=== PATIENT | male | born 1940 | race Caucasian/White ===

== ENCOUNTER 2023-09-05 07:42 | Emergency (ER) | payer MEDICARE, OTHER, SELFPAY ==
[2023-09-05 07:51] VITALS: BP 166/87
--- NOTE | 2023-09-05 09:53 | ED.MUSCINJ ---
HPI-Injury
General
Chief Complaint: Musculo-Skeletal Complaint
Source: patient
Exam Limitations: none
Time Seen by Provider: 09/05/23 09:00
Travel History
Have you had any contact with someone who has COVID-19?: No
Do you have any symptoms of coronavirus? Fever > 100 degrees, chills, cough, shortness of breath, sore throat, loss of taste or smell, muscle aches, or headache?: No
History of Present Illness-Injury
Initial Injury comments:
83-year-old male presents complaining of left anterior chest wall pain starting 5 days ago. He slipped on his patio and landed on his chest on the railing on his deck. He heard a rattling in his chest this morning when he woke up and presented
here for evaluation. He notes pain when he coughs or moves. He denies any significant shortness of breath. No hemoptysis.
Past History
Past History
ED Past Medical History: IDDM, Valvular disease and Other (COVID-19, jun 2020)
ED Past Surgical History: Cardiac (Cath no stents)
Social History
Tobacco: Non-smoker
Alcohol: None
Drug: None
Personal:
Living: with family
Employment: Retired
Family History
Family History: Diabetes
Phy Exam
Physical Exam
Physical Exam:
General: Well appearing male, No acute respiratory distress
HEENT: NC/AT
Heart: RRR, no murmurs
Lungs; CTA bilaterally, no wheeze or rales
Abd; soft, no ecchymosis or swelling
MSK: tender to left anterior lateral chest wall without stepoff or deformity
EXT: no cyanosis or edema.
skin: No laceration.
Injury Course
Orders/Labs/Results
Orders:
Orders
09/05/23 07:58
CR Ribs-left 3 Vw W/pa Chest Urgent
Comment:
Reason For Exam: injury to L lower ant chest wall
MDM/Problems Addressed
Differential Diagnosis Includes:
Left chest wall pain after slip and fall. Consider contusion rib fracture versus pneumothorax No abdominal tenderness to suggest intra-abdominal injury
I personally visualized x-rays of the left ribs and chest which are negative for acute displaced fracture or pneumothorax. Patient does have chronic findings on his chest x-ray that are similar to prior images. Suspect underlying chest wall strain
versus contusion. Did explain to patient he still could have a an occult nondisplaced rib fracture but treatment is the same.
*Critical Care Note
Total Time (30-74mins, 75-104mins- exclusive of procedures): Not Applicable
ED Attending Note
-
Portions of this chart may have been created with voice recognition software.� Occasional wrong word or��sound alike� substitutions may have occurred due to the inherent limitations of voice recognition software.
Discharge Plan
Departure
Patient Disposition: Home (Routine Discharge)
Date of Disposition: 09/05/23
Time of Disposition: 10:35
Patient with high blood pressure during this ER visit?: No
Discharge Problem:
Chest wall injury
Instructions: Contusion (DC)
Prescriptions:
No Action
simvastatin 40 MG tablet
40 mg PO QPM
coenzyme Q10 100 MG capsule
200 mg PO DAILY
glimepiride 2 MG tablet
4 mg PO BID
apixaban [Eliquis] 5 MG tablet
5 mg PO BID Qty: 60 0RF
Rx Instructions:
RESUME TONIGHT
gabapentin 400 MG capsule
800 mg PO BID
insulin glargine [Lantus Solostar U-100 Insulin] 300 UNITS/3 ML insulin pen
50 units SC HS
metoprolol tartrate 25 MG tablet
25 mg PO BID Qty: 60 6RF
sennosides [senna] 1 TABLET tablet
1 tab PO PRN PRN (Reason: constipation)
polyethylene glycol 3350 17 GRAMS powder in packet
17 grams PO PRN PRN (Reason: constipation)
acetaminophen 325 MG tablet
650 mg PO Q4HPRN PRN (Reason: COPE, mild pain, or fever >101F) 0RF
aspirin 81 MG tablet,delayed release (DR/EC)
81 mg PO DAILY 0RF
Referrals:
Segun Mccormick MD [Family Provider] -
Activity Restrictions/Additional Instructions:
Use Tylenol or ibuprofen for pain. Ice to the sore spot. Avoid heavy lifting or twisting activities. Return if worse
[2023-09-05 10:40] VITALS: BP 167/86
== END 2023-09-05 10:40 | disposition home or self-care (01) ==
LOC: EMR 07:42
PROVIDERS: EMERGENCY PHYSICIAN Emergency Medicine; FAMILY PHYSICIAN Family Medicine
DX: S29.9XXA Unspecified injury of thorax, initial encounter (principal); W01.0XXA Fall on same level from slipping, tripping and stumbling without subsequent striking against object, initial encounter; E11.9 Type 2 diabetes mellitus without complications; Z83.3 Family history of diabetes mellitus; Z86.16 Personal history of COVID-19
CPT/HCPCS: 99283; 71101

== ENCOUNTER 2024-08-11 15:12 | Emergency (ER) | payer MEDICARE, OTHER, SELFPAY ==
[2024-08-11 15:17] VITALS: BP 156/80
[2024-08-11 15:37] LABS: % Basophils 1.2 % (0-2); % Eosinophils 2.8 % (0-6); % Immature Granulocytes 0.4 % (0-0.5); % Lymphocytes 19.4 % (20.5-51.1); % Monocytes 8.5 % (1.7-9.3); % Neutrophils 67.7 % (42.2-75.2); Absolute Basophils 0.1 10^3/uL (0-0.2); Absolute Eosinophils 0.2 10^3/uL (0-0.7); Absolute Lymphocytes 1.5 10^3/uL (1.2-3.4); Absolute Monocytes 0.7 10^3/uL (0.1-0.6); Absolute Neutrophils 5.2 10^3/uL (1.4-6.5); Hematocrit 38.9 % (39.0-52.0); Hemoglobin 13.6 g/dL (13.0-18.0); Mean Corpuscular Hgb 30.7 pg (27.0-31.0); Mean Corpuscular Volume 87.8 fL (80.0-94.0); Mean Platelet Volume 10.7 fL (7.4-10.4); Nucleated Red Blood Cells % 0 % (-); Platelet Count 173 10^3/uL (130-400); Red Blood Cell Count 4.43 10^6/uL (4.70-6.10); Red Cell Dist. Width 12.2 % (11.5-14.5); White Blood Cell Count 7.7 10^3/uL (4.8-10.8)
[2024-08-11 15:53] LABS: ALT (SGPT) 23 U/L (0-50); AST (SGOT) 28 U/L (17-59); Albumin 4.3 g/dl (3.5-5.0); Alkaline Phosphatase 104 U/L (38-126); Blood Urea Nitrogen 20 mg/dl (9-20); Carbon Dioxide 25 mmol/L (22-30); Chloride 105 mmol/L (98-107); Glucose 102 mg/dl (70-99); Lipase 167 U/L (23-300); Potassium 4.3 mmol/L (3.5-5.1); Sodium 139 mmol/L (135-145); Total Bilirubin 0.4 mg/dl (0.2-1.3); Total Protein 6.6 g/dl (6.3-8.2); eGFR > 60.00
[2024-08-11 15:54] LABS: Lactic Acid 0.6 mmol/L (0.7-2.0)
[2024-08-11 17:32] VITALS: BP 149/84
--- NOTE | 2024-08-11 18:35 | ED.GENMED ---
History of Present Illness
General
Chief Complaint: Abdominal Pain
Source: patient
Exam Limitations: none
Time Seen by Provider: 08/11/24 18:30
Nursing documentation reviewed up to this point in time: agreed with
History of Present Illness
History of Present Illness:
84-year-old male with history of aortic stenosis, A-fib on Eliquis, DVT, HTN, HLD, IDDM, prosthetic right eye, presents today with right lower quadrant pain. States he awakened at 4 AM with RLQ pain that lasted about 30 minutes then resolved. He
went to work at [employer] later in the morning and about 12 noon the pain returned. He saw his PCP Dr. Mccormick at 1:30 PM who suggested he come here for evaluation.
Patient states he has no pain right now. He has been moving his bowels normally, denies nausea vomiting. Denies fever or chills. Denies chest pain or trouble breathing.
Patient states 'the only reason I am here is that when I was first I had a neighbor who is 84 years old that had pain right here (points to his right lower abdomen) and he from it.'
Past History
Past History
ED Past Medical History: IDDM, Valvular disease and Other (COVID-jun 2020)
ED Past Surgical History: Cardiac (Cath no stents)
Social History
Tobacco: Non-smoker
Alcohol: None
Drug: None
Personal:
Living: with family
Employment: Retired
Family History
Family History: Diabetes
Review of Systems
Review of Systems
Allergies reviewed?: Yes
All Other Systems: ROS reviewed and negative except as documented in HPI and ROS
Constitutional: Denies fever or fatigue
Respiratory: Denies trouble breathing
Cardiac: Denies chest pain
ABD/GI: Reports abdominal pain; Denies nausea, vomiting, diarrhea, constipated, bloody stools, black stools or anorexia
: Reports no symptoms
Musculoskeletal: Reports no symptoms
Skin: Reports no symptoms
Neurological: Reports no symptoms
Phy Exam
Physical Exam
Physical Exam:
GENERAL: No acute distress. A&Ox3.
CONSTITUTIONAL: Afebrile.
EYES: clear, conjunctivae normal
ENMT: moist mucus membranes, Pharynx nl
RESPIRATORY: Regular respirations, nonlabored, lungs clear.
CARDIOVASCULAR: Regular rate and rhythm, no murmurs, no rubs.
GI: Soft, nontender, normal BS
MUSCULOSKELETAL: Moves with ease. Well perfused.
SKIN: Warm, dry, pink
PSYCH: Normal mood and affect. Well kept, interactive and appropriate
NEUROLOGIC: Awake, alert and oriented. No focal neurological deficits
Course
Orders/Labs/Results
Orders:
Orders
08/11/24 15:26
Complete Blood Count/With Diff Urgent
Comprehensive Metabolic Panel Urgent
Lactic Acid Urgent
Lipase Urgent
08/11/24 18:44
CT Abd/Pel (IV only)-DH only Urgent
Comment:
Reason For Exam: RLQ pain
Abnormal Lab Results
08/11/24
15:26
RBC 4.43 L 10^6/uL
(4.70-6.10)
Hct 38.9 L %
(39.0-52.0)
MPV 10.7 H fL
(7.4-10.4)
Absolute Monos (auto) 0.7 H 10^3/uL
(0.1-0.6)
Lymphocytes % 19.4 L %
(20.5-51.1)
Glucose 102 H mg/dl
(70-99)
Lactic Acid 0.6 L mmol/L
(0.7-2.0)
08/11/24 15:26
08/11/24 15:26
Vital Signs
Initial and Last Documented VS:
Initial Vital Signs
Temp Pulse Resp BP Pulse Ox
98.2 F 77 20 156/80 98
08/11/24 15:17 08/11/24 15:17 08/11/24 15:17 08/11/24 15:17 08/11/24 15:17
Last Documented Vital Signs
Temp Pulse Resp BP Pulse Ox
98.2 F 85 16 141/73 96
08/11/24 15:17 08/11/24 17:32 08/11/24 17:32 08/11/24 19:14 08/11/24 17:32
MDM/Problems Addressed
MDM/Problems Addressed:
84-year-old male with history of aortic stenosis, A-fib on Eliquis, DVT, HTN, HLD, IDDM, COPD, prosthetic R eye, presents today with right lower quadrant pain. States he awakened at 4 AM with RLQ pain that lasted about 30 minutes then resolved. He
went to work at [employer] later in the morning and about 12 noon the pain returned. He saw his PCP Dr. Mccormick at 1:30 PM who suggested he come here for evaluation.
Patient states he has no pain right now. He has been moving his bowels normally, denies nausea vomiting. Denies fever or chills. Denies chest pain or trouble breathing.
Patient states 'the only reason I am here is that when I was first I had a neighbor who is 84 years old that had pain right here (points to his right lower abdomen) and he from it.'
Afebrile, NAD
Abdomen benign
CBC with no clinically significant abnormality
CMP normal
8:45 PM: Abdominal CAT scan with IV contrast report reviewed: No acute finding.
Pt is stable for discharge, OOB, dressed, pacing, wants to go home.
*Critical Care Note
Total Time (30-74mins, 75-104mins- exclusive of procedures): Not Applicable
ED Attending Note
-
Portions of this chart may have been created with voice recognition software.� Occasional wrong word or��sound alike� substitutions may have occurred due to the inherent limitations of voice recognition software.
Discharge Plan
Departure
Patient Disposition: Home (Routine Discharge)
Date of Disposition: 08/11/24
Time of Disposition: 20:45
Patient with high blood pressure during this ER visit?: No
Condition: Good
Discharge Problem:
Abdominal pain
Instructions: Abdominal Pain
Prescriptions:
No Action
simvastatin 40 MG tablet
40 mg PO QPM
coenzyme Q10 100 MG capsule
200 mg PO DAILY
glimepiride 2 MG tablet
4 mg PO BID
apixaban [Eliquis] 5 MG tablet
5 mg PO BID Qty: 60 0RF
Rx Instructions:
RESUME TONIGHT
gabapentin 400 MG capsule
800 mg PO BID
insulin glargine [Lantus Solostar U-100 Insulin] 300 UNITS/3 ML insulin pen
50 units SC HS
metoprolol tartrate 25 MG tablet
25 mg PO BID Qty: 60 6RF
sennosides [senna] 1 TABLET tablet
1 tab PO PRN PRN (Reason: constipation)
polyethylene glycol 3350 17 GRAMS powder in packet
17 grams PO PRN PRN (Reason: constipation)
acetaminophen 325 MG tablet
650 mg PO Q4HPRN PRN (Reason: COPE, mild pain, or fever >101F) 0RF
aspirin 81 MG tablet,delayed release (DR/EC)
81 mg PO DAILY 0RF
Referrals:
NONE,* [Family Provider] -
Activity Restrictions/Additional Instructions:
As we discussed, nothing worrisome in your workup here today.
Interventions
Interventions:
*Risk Screen - Suicide Last Done: 08/11/24 19:17
*General Assessment Last Done: 08/11/24 15:17
*Neglect/Abuse Screening Last Done: 08/11/24 19:16
ED- Fall Risk Assessment Last Done: 08/11/24 19:16
*ED COVID-19 Vaccine History Last Done: 08/11/24 18:30
*Nursing Disposition Last Done: 08/11/24 20:51
JY-Pyncza-Mnnjgmxtqb Assessment Last Done: 08/11/24 19:16
Discharge Date and Time
Discharge Date/Time: 08/11/24 20:59
Print Language: TURKISH
[2024-08-11 19:14] VITALS: BP 141/73
== END 2024-08-11 20:59 | disposition home or self-care (01) ==
LOC: EMR 15:12
PROVIDERS: Student in an Organized Health Care Education/Training Program; EMERGENCY PHYSICIAN Emergency Medicine
DX: R10.31 Right lower quadrant pain (principal); I35.0 Nonrheumatic aortic (valve) stenosis; I48.91 Unspecified atrial fibrillation; I10 Essential (primary) hypertension; E78.5 Hyperlipidemia, unspecified; E11.9 Type 2 diabetes mellitus without complications; Z79.01 Long term (current) use of anticoagulants; Z83.3 Family history of diabetes mellitus; Z97.0 Presence of artificial eye
CPT/HCPCS: 99285; 74177; 80053; 83605; 83690; 85025; Q9967